=== PATIENT | male | born 1985 | race Caucasian/White ===

== ENCOUNTER 2017-08-06 08:57 | Outpatient (CLI) | payer OTHER ==
[2017-08-06] MEDS ORDERED: Iopamidol 370 76% 100 ML VIAL ONE (09:00)
--- NOTE | 2017-08-06 12:28 | CT ---
CT ABDOMEN AND PELVIS WITH IV CONTRAST: 08/06/2017 HISTORY: Post chemotherapy for testicular cancer. History of orchiectomy. Follow-up evaluation. COMPARISON: 07/27/2016 FINDINGS: The lung bases are clear without evidence of a pulmonary nodule or mass. The liver, spleen, pancreas, bilateral adrenal glands, kidneys, abdominal aorta, opacified bowel, and incompletely distended urinary bladder demonstrate a normal CT appearance. A right testicular prosthesis is again present. There is no evidence of lymphadenopathy. No lytic or sclerotic osseous lesions are identified. IMPRESSION: No evidence of metastatic disease. CT scan of the abdomen and pelvis is stable from the prior exam i n 2016. POS: [facility]
== END 2017-08-06 08:58 | disposition home or self-care (01) ==
LOC: SCSCT 08:57
PROVIDERS: ATTEND Internal Medicine Hematology & Oncology
DX: C62.11 Malignant neoplasm of descended right testis (principal)
CPT/HCPCS: 74177